=== PATIENT | female | born 1945 | race Caucasian/White ===

== ENCOUNTER 2016-07-30 18:35 | Emergency (ER) | payer MEDICARE ==
[2016-07-30 19:18] LABS: BILIRUBIN,URINE NEGATIVE (NEGATIVE); PH,URINE 5.5 PH (5.0-7.5)
[2016-07-30 19:22] LABS: UA w/ MICROSCOPIC CHARGE YES; UR CULTURE IF IND INDICATED
--- NOTE | 2016-07-30 19:22 | ED Physician Documentation ---
History of Present Illness - Stated complaint Stated Complaint: FEMALE - Chief complaint Chief Complaint: Abd Pain - History obtained from History obtained from: Patient, Family - History of Present Illness Timing: How many days ago (3) Pain level max: 3 Pain level now: 0 Improved by: nothing Worsened by: nothing - Additonal information Additional information: states R LQ pain intermittently for 3 days. states noted blood in urine today. Has had renal stones in the past. Visiting from [place] Review of Systems Ten Systems: 10 systems reviewed and negative Constitutional: denies: Fever, Chills Nose: denies: Rhinorrhea / runny nose, Congestion GI: denies: Nausea, Vomiting, Diarrhea Skin: denies: Rash Musculoskeletal: denies: Neck pain, Back pain Neurologic: denies: Focal weakness, Numbness, Headache PD PAST MEDICAL HISTORY - Past Medical History Past Medical History: Yes Cardiovascular: Hypertension, Coronary artery disease Endocrine/Autoimmune: Type 2 diabetes GI: Cholelithiasis : Kidney stones - Past Surgical History Past Surgical History: Yes - Present Medications Home Medications: Ambulatory Orders Medication Instructions Recorded Confirmed Cephalexin [Keflex] 500 mg PO Q6H #28 capsule 07/30/16 Ondansetron Odt [Zofran] 4 mg TL Q6H PRN #10 tablet 07/30/16 Oxycodone HCl/Acetaminophen 1 each PO Q6H PRN #7 tablet 07/30/16 [Percocet 5-325 mg Tablet] - Allergies Allergies/Adverse Reactions: Allergies Allergy/AdvReac Type Severity Reaction Status Date / Time codeine Allergy Unknown Verified 07/30/16 18:45 - Social History Does the pt smoke?: No Smoking Status: Never smoker Does the pt drink ETOH?: No Does the pt have substance abuse?: No - Immunizations Immunizations are current?: Yes PD ED PE NORMAL - Vitals Vital signs reviewed: Yes - General General: Alert and oriented X 3, No acute distress, Well developed/nourished - HEENT HEENT: Moist mucous membranes - Neck Neck: Supple, no meningeal sign - Cardiac Cardiac: RRR - Respiratory Respiratory: No respiratory distress, Clear bilaterally - Abdomen Abdomen: Soft, Non tender, Non distended - Back Back: No CVA TTP, No spinal TTP - Derm Derm: Warm and dry - Neuro Neuro: Alert and oriented X 3 - Psych Psych: Normal mood, Normal affect Results - Vitals Vitals: Vital Signs - 24 hr 07/30/16 07/30/16 07/30/16 18:35 19:53 21:27 Temperature 36.7 C 36.6 C 36.2 C L Heart Rate 54 L 53 L 58 L Respiratory 14 15 15 Rate Blood Pressure 153/69 H 150/55 H 144/64 H O2 Saturation 100 98 97 Oxygen O2 Source Room air - Labs Labs: Laboratory Tests 07/30/16 07/30/16 07/30/16 18:54 19:41 19:41 WBC 11.0 H RBC 4.45 Hgb 13.5 Hct 40.6 MCV 91.1 MCH 30.4 MCHC 33.3 RDW 13.5 Plt Count 237 MPV 8.9 Neut # 5.8 Lymph # 4.2 H [place] # 0.9 Eos # 0.1 Baso # 0.1 Absolute Nucleated RBC 0.00 Nucleated RBCs 0.0 Sodium 140 Potassium 3.9 Chloride 104 Carbon Dioxide 27 Anion Gap 9.0 BUN 20 Creatinine 1.0 Estimated GFR (MDRD) 55 L Glucose 122 H Calcium 9.2 Total Bilirubin 0.7 AST 25 ALT 22 Alkaline Phosphatase 58 Total Protein 7.1 Albumin 4.0 Globulin 3.1 Albumin/Globulin Ratio 1.3 Lipase 35 Urine Color RED/BLOODY Urine Clarity CLOUDY Urine pH 5.5 Ur Specific [place] >=1.030 H Urine Protein 100 H Urine Glucose (UA) NEGATIVE Urine Ketones NEGATIVE Urine Occult Blood LARGE H Urine Nitrite NEGATIVE Urine Bilirubin NEGATIVE Urine Urobilinogen 0.2 (NORMAL) Ur Leukocyte Esterase NEGATIVE Urine RBC TNTC H Urine WBC 4-5 Ur Squamous Epith Cells FEW Squamous Urine Bacteria Many H Urine Mucus Few Strands Ur Microscopic Review INDICATED Urine Culture Comments INDICATED - Rads (name of study) CT abd/pelvis Radiology: Prelim report reviewed, EMP read contemporaneously, See rad report ( Mild to moderate right hydroureteronephrosis extending to a 6 x 4 x 5 mm distal ureteral calculus. Tiny nonobstructive bilateral intrarenal calculi. ) PD MEDICAL DECISION MAKING - ED course Complexity details: reviewed results, re-evaluated patient, considered differential, d/w patient, d/w family ED course: Patient is a 70-year-old female with hematuria. Her pain is mainly low in the pelvis. Sister had ovarian cancer in the past, therefore a CT was performed to evaluate for possible ovarian mass. Ovaries do not appear to have any mass on CT scan. She does have a right ureteral stone. Does not currently have any pain. She is very well-appearing, nontoxic. Urinalysis appears contaminated, however will error on the side of caution and place her on antibiotics. She is referred to [facility] in [place] for urology follow-up. This is where her daughter has her high risk care. The patient will be in the state for several more weeks. If she worsens in any way she will return. Patient is comfortable with this plan. I did attempt to contact urology several times, but no callback was received. Patient and family were given strict return precautions. Patient counseled regarding signs and symptoms for which I believe and urgent re-evaluation would be necessary. Patient with good understanding of and agreement to plan and is comfortable going home at this time This document was made in part using voice recognition software. While efforts are made to proofread this document, sound alike and grammatical errors may occur. Departure - Departure Disposition: 01 Home, Self Care Clinical Impression: Ureteral stone Condition: Good Instructions: ED Stone Renal W Colic Follow-Up: [facility] [Provider Group] - Within 1 week (call for an appointment) [facility] [Provider Group] Prescriptions: Cephalexin [Keflex] 500 mg PO Q6H #28 capsule Oxycodone HCl/Acetaminophen [Percocet 5-325 mg Tablet] 1 each PO Q6H PRN #7 tablet PRN Reason: pain Ondansetron Odt [Zofran] 4 mg TL Q6H PRN #10 tablet PRN Reason: Nausea / Vomiting Comments: You need to follow up with urology. Call for an appointment. Return if you worsen, especially if you develop fevers. Do not drink alcohol or drive while on narcotic pain medicine. Note that many narcotic pain relievers also contain tylenol/acetaminophen. Please ensure that your total dose of acetaminophen from all sources does not exceed 3 grams (3000mg) per day. You may constipated on this medication, take a stool softener such as "Colace" twice a day while you are on it. Also recommend a [id number] laxative such as senna or MiraLAX any day that you do not have a bowel movement. If you received narcotic pain medication in the emergency department, do not drive or operate machinery for the next 24 hours. Discharge Date/Time: 07/30/16 22:19
[2016-07-30 19:52] LABS: BASOPHILS # (AUTO) 0.1 10^3/uL (0.0-0.1); BASOPHILS % (AUTO) 0.5 %; EOSINOPHILS # (AUTO) 0.1 10^3/uL (0.0-0.7); EOSINOPHILS % (AUTO) 0.8 %; HCT - HEMATOCRIT 40.6 % (37.0-47.0); HGB - HEMOGLOBIN 13.5 g/dL (12.0-16.0); LYMPHOCYTES # (AUTO) 4.2 10^3/uL (1.5-3.5); LYMPHOCYTES % (AUTO) 37.8 %; MEAN CORPUSCULAR HEMOGLOBIN 30.4 pg (27.0-31.0); MEAN CORPUSCULAR HGB CONC 33.3 g/dL (32.0-36.0); MEAN CORPUSCULAR VOLUME 91.1 fL (81.0-99.0); MEAN PLATELET VOLUME 8.9 fL (7.9-10.8); MONOCYTES # (AUTO) 0.9 10^3/uL (0.0-1.0); MONOCYTES % (AUTO) 8.3 %; NEUTROPHILS # (AUTO) 5.8 10^3/uL (1.5-6.6); NEUTROPHILS % (AUTO) 52.6 %; RED BLOOD COUNT 4.45 10^6/uL (4.20-5.40); RED CELL DISTRIBUTION WIDTH 13.5 % (12.0-15.0)
[2016-07-30 20:02] LABS: ALBUMIN/GLOBULIN RATIO 1.3 (1.0-2.2); BILIRUBIN,TOTAL 0.7 mg/dL (0.2-1.0); CALCIUM 9.2 mg/dL (8.5-10.3); POTASSIUM 3.9 mmol/L (3.5-5.0); TOTAL PROTEIN 7.1 g/dL (6.7-8.2)
[2016-07-30] MEDS ORDERED: IOPAMIDOL-300 100 ML VIAL IVP ONE (20:24)
--- NOTE | 2016-07-30 21:09 | CT Preliminary Report ---
Exam: CT Abdomen/Pelvis W/ IMPRESSION: 1. Mild to moderate right hydroureteronephrosis extending to a 6 x 4 x 5 mm distal ureteral calculus. 2. Tiny nonobstructive bilateral intrarenal calculi. [facility] SITE ID: [id number]
--- NOTE | 2016-07-30 21:11 | CT Report ---
EXAM: CT ABDOMEN AND PELVIS EXAM DATE: 07/30/2016 08:32 PM. CLINICAL HISTORY: Right pelvic pain. Hematuria. COMPARISONS: None. TECHNIQUE: Routine helical CT imaging was performed through the abdomen and pelvis. IV contrast: 100 mL Isovue-300. Enteric contrast: No. Reconstructions: Coronal and sagittal. In accordance with CT protocol optimization, one or more of the following dose reduction techniques w ere utilized for this exam: automated exposure control, adjustment of mA and/or KV based on patient s ize, or use of iterative reconstructive technique. FINDINGS: Lung Bases: Unremarkable. Liver: Several subcentimeter hypoattenuating foci are too small to characterize further (axial images 18, 20, 23). Gallbladder/Bile Ducts: Unremarkable. No visualized stones or biliary ductal dilatation. Spleen: Normal. Pancreas: Normal. Adrenal Glands: Normal. Kidneys and Ureters: Bilateral parapelvic cysts. 10 mm exophytic cyst arising from the right lower po le. Two Subcentimeter round hypoattenuating foci in the left lower pole cortex likely also represent cysts. 2-3 mm intrarenal calculi in the left interpolar region and right lower pole. Mild to moderate right hydroureteronephrosis extending to a 6 x 4 x 5 mm calculus in the distal ureter (axial image 7 6, coronal image 34). Peritoneal Cavity/Bowel: Postoperative changes of small bowel resection with enteroenteric anastomosi s in the anterior left mid abdomen. No evidence for bowel obstruction or acute inflammatory process. The appendix is normal. No free fluid, pneumoperitoneum, or adenopathy. Pelvic Organs: The bladder, uterus, and ovaries are within normal limits. Vasculature: Trace atherosclerotic calcifications within the aorta. No aneurysm or other significant abnormality. Bones: Mild degenerative changes within the spine. No acute bony abnormality. Other: None. IMPRESSION: 1. Mild to moderate right hydroureteronephrosis extending to a 6 x 4 x 5 mm distal ureteral calculus. 2. Tiny nonobstructive bilateral intrarenal calculi. [facility] Referring Provider Line: [phone] SITE ID: [id number]
[2016-07-30 21:27] VITALS: BP 144/64
[2016-07-30] MEDS ORDERED: cefTRIAXone 1 GM VIAL IM STA (22:09)
[2016-07-30] MEDS ORDERED: cefTRIAXone 1 GM in SODIUM CHLORIDE 0.9% MINIBAG 100 ML IV STA (22:11)
[2016-07-30] MEDS ORDERED: cefTRIAXone 1 GM VIAL ONE (22:11)
== END 2016-07-30 22:19 | disposition home or self-care (01) ==
LOC: ED 18:35
DX: N13.2 Hydronephrosis with renal and ureteral calculous obstruction (principal); Z87.442 Personal history of urinary calculi; I10 Essential (primary) hypertension; I25.10 Atherosclerotic heart disease of native coronary artery without angina pectoris; E11.9 Type 2 diabetes mellitus without complications
CPT/HCPCS: 36415; 74177; 80053; 81001; 83690; 85025; 87086; 96374; 99283; 99284; Q9967; 81003

== ENCOUNTER 2016-07-31 15:09 | Emergency (ER) | payer MEDICARE ==
[2016-07-31] MEDS ORDERED: SODIUM CHLORIDE 0.9% 1,000 ML IV ONE ×2 (15:18→15:22)
[2016-07-31] MEDS ORDERED: KETOROLAC 60 MG/2 ML VIAL IVP STA (15:18)
[2016-07-31] MEDS ORDERED: ONDANSETRON 4 MG/2 ML VIAL IVP STA (15:18)
[2016-07-31] MEDS ORDERED: KETOROLAC 60 MG/2 ML VIAL ONE (15:22)
[2016-07-31] MEDS ORDERED: ONDANSETRON 4 MG/2 ML VIAL ONE ×2 (15:22→15:25)
[2016-07-31] MEDS ORDERED: KETOROLAC 30 MG/ML VIAL ONE (15:24)
[2016-07-31 15:36] LABS: BASOPHILS # (AUTO) 0.1 10^3/uL (0.0-0.1); BASOPHILS % (AUTO) 0.6 %; EOSINOPHILS % (AUTO) 0.1 %; HCT - HEMATOCRIT 44.9 % (37.0-47.0); LYMPHOCYTES # (AUTO) 2.4 10^3/uL (1.5-3.5); MEAN CORPUSCULAR HEMOGLOBIN 30.4 pg (27.0-31.0); MEAN CORPUSCULAR HGB CONC 33.4 g/dL (32.0-36.0); MEAN CORPUSCULAR VOLUME 91.1 fL (81.0-99.0); MEAN PLATELET VOLUME 9.1 fL (7.9-10.8); MONOCYTES # (AUTO) 0.6 10^3/uL (0.0-1.0); MONOCYTES % (AUTO) 4.5 %; NEUTROPHILS # (AUTO) 10.4 10^3/uL (1.5-6.6); NEUTROPHILS % (AUTO) 76.8 %; RED BLOOD COUNT 4.93 10^6/uL (4.20-5.40); RED CELL DISTRIBUTION WIDTH 13.5 % (12.0-15.0); UNCORRECTED WHITE BLOOD COUNT 13.5 x10^3/uL; WHITE BLOOD COUNT 13.5 x10^3/uL (4.8-10.8)
[2016-07-31 15:48] LABS: ALBUMIN/GLOBULIN RATIO 1.2 (1.0-2.2); BILIRUBIN,TOTAL 0.4 mg/dL (0.2-1.0); CALCIUM 9.2 mg/dL (8.5-10.3); CREATININE 0.9 mg/dL (0.4-1.0); POTASSIUM 3.7 mmol/L (3.5-5.0); TOTAL PROTEIN 7.8 g/dL (6.7-8.2)
[2016-07-31 16:19] LABS: BILIRUBIN,URINE NEGATIVE (NEGATIVE)
[2016-07-31 16:34] LABS: UA w/ MICROSCOPIC CHARGE YES
[2016-07-31 16:43] LABS: WBC,URINE 0-3 /HPF (0-5)
[2016-07-31 16:44] LABS: UR CULTURE IF IND NOT INDICATED
--- NOTE | 2016-07-31 16:51 | ED Physician Documentation ---
PD HPI ABD PAIN - Stated complaint Stated Complaint: ABD PX - Chief complaint Chief Complaint: Abd Pain - History obtained from History obtained from: Patient, Family - History of Present Illness Timing - onset: Today Timing - duration: Hours (5) Timing - details: Abrupt onset Pain level max: 10 Pain level now: 10 Quality: Aching, Sharp, Pain Location: Other (R pelvic) Radiation: Right flank Improved by: Other (nothing) Worsened by: Other (nothing) Similar symptoms before: Diagnosis (kidney stone) Recently seen: Emergency Dept (last night for same,dx with kidney stone) Review of Systems Constitutional: denies: Fever, Chills Nose: denies: Rhinorrhea / runny nose, Congestion Cardiac: denies: Chest pain / pressure Respiratory: denies: Dyspnea GI: reports: Nausea, Vomiting. denies: Diarrhea Skin: denies: Rash Musculoskeletal: denies: Neck pain, Back pain Neurologic: denies: Headache PD PAST MEDICAL HISTORY - Past Medical History Cardiovascular: Hypertension, Coronary artery disease Endocrine/Autoimmune: Type 2 diabetes GI: Cholelithiasis : Kidney stones - Past Surgical History Past Surgical History: Yes - Present Medications Home Medications: Ambulatory Orders Medication Instructions Recorded Confirmed Cephalexin [Keflex] 500 mg PO Q6H #28 capsule 07/30/16 07/31/16 Ondansetron Odt [Zofran] 4 mg TL Q6H PRN #10 tablet 07/30/16 07/31/16 Oxycodone HCl/Acetaminophen 1 each PO Q6H PRN #7 tablet 07/30/16 07/31/16 [Percocet 5-325 mg Tablet] Metoprolol Succinate 25 mg ORAL BID 07/31/16 07/31/16 Topiramate 25 mg PO DAILY 07/31/16 07/31/16 - Allergies Allergies/Adverse Reactions: Allergies Allergy/AdvReac Type Severity Reaction Status Date / Time codeine Allergy Unknown Verified 07/31/16 15:17 - Social History Does the pt smoke?: No Smoking Status: Never smoker Does the pt drink ETOH?: No Does the pt have substance abuse?: No - Immunizations Immunizations are current?: Yes PD ED PE NORMAL - Vitals Vital signs reviewed: Yes - General General: Alert and oriented X 3, Other (Appears uncomfortable, vomiting) - HEENT HEENT: PERRL, Moist mucous membranes - Neck Neck: Supple, no meningeal sign - Cardiac Cardiac: RRR - Respiratory Respiratory: No respiratory distress, Clear bilaterally - Abdomen Abdomen: Soft, Non tender, Non distended - Back Back: No CVA TTP, No spinal TTP - Derm Derm: Warm and dry, No rash - Neuro Neuro: Alert and oriented X 3 - Psych Psych: Normal mood, Normal affect Results - Vitals Vitals: Vital Signs - 24 hr 07/31/16 07/31/16 15:15 16:53 Temperature 35.9 C L 36.9 C Heart Rate 51 L 72 Respiratory 20 14 Rate Blood Pressure 180/77 H 156/61 H O2 Saturation 99 96 Oxygen O2 Source Room air - Labs Labs: Laboratory Tests 07/31/16 07/31/16 07/31/16 15:25 15:25 16:05 WBC 13.5 H RBC 4.93 Hgb 15.0 Hct 44.9 MCV 91.1 MCH 30.4 MCHC 33.4 RDW 13.5 Plt Count 262 MPV 9.1 Neut # 10.4 H Lymph # 2.4 Lane # 0.6 Eos # 0.0 Baso # 0.1 Absolute Nucleated RBC 0.00 Nucleated RBCs 0.0 Sodium 139 Potassium 3.7 Chloride 104 Carbon Dioxide 25 Anion Gap 10.0 BUN 15 Creatinine 0.9 Estimated GFR (MDRD) 62 L Glucose 155 H Calcium 9.2 Total Bilirubin 0.4 AST 26 ALT 23 Alkaline Phosphatase 66 Total Protein 7.8 Albumin 4.2 Globulin 3.6 Albumin/Globulin Ratio 1.2 Lipase 25 Urine Color YELLOW Urine Clarity HAZY Urine pH 7.0 Ur Specific [place] 1.020 Urine Protein NEGATIVE Urine Glucose (UA) NEGATIVE Urine Ketones 15 H Urine Occult Blood LARGE H Urine Nitrite NEGATIVE Urine Bilirubin NEGATIVE Urine Urobilinogen 0.2 (NORMAL) Ur Leukocyte Esterase NEGATIVE Urine RBC TNTC H Urine WBC 0-3 Ur Squamous Epith Cells NONE SEEN Amorphous Sediment Few Urine Bacteria None Seen Ur Microscopic Review INDICATED Urine Culture Comments NOT INDICATED PD MEDICAL DECISION MAKING - ED course Complexity details: reviewed results, re-evaluated patient, considered differential, d/w patient, d/w family ED course: Patient is a 70-year-old female with a known right ureteral stone at the UVJ. Did not have symptoms last night, but developed pain and vomiting today. This resolved with Zofran and Toradol. Given IV fluids. No evidence of UTI or infected stone. Pain well controlled. Has pain medication and nausea medication at home. We will have her follow-up with urology for further evaluation and care. Patient and family counseled regarding signs and symptoms for which I believe and urgent re-evaluation would be necessary. Patient with good understanding of and agreement to plan and is comfortable going home at this time This document was made in part using voice recognition software. While efforts are made to proofread this document, sound alike and grammatical errors may occur. Departure - Departure Disposition: 01 Home, Self Care Clinical Impression: Ureteral stone Condition: Good Instructions: ED Stone Renal W Colic Follow-Up: [facility] [Provider Group] - Within 1 week Comments: Continue your medications at home. Return if you worsen. Drink plenty of water. Discharge Date/Time: 07/31/16 16:57
[2016-07-31 16:54] VITALS: BP 156/61
== END 2016-07-31 16:57 | disposition home or self-care (01) ==
LOC: ED 15:09
DX: N20.1 Calculus of ureter (principal); R11.2 Nausea with vomiting, unspecified; I10 Essential (primary) hypertension; E11.9 Type 2 diabetes mellitus without complications
CPT/HCPCS: 36415; 80053; 81001; 81003; 83690; 85025; 87086; 96374; 96375; 99283; 99284

== ENCOUNTER 2016-08-18 11:58 | Emergency (ER) | payer MEDICARE ==
[2016-08-18 12:06] VITALS: BP 164/88
[2016-08-18 12:15] LABS: BILIRUBIN,URINE NEGATIVE (NEGATIVE)
[2016-08-18 12:16] LABS: UA w/ MICROSCOPIC CHARGE YES
--- NOTE | 2016-08-18 12:26 | ED Physician Documentation ---
History of Present Illness - Stated complaint Stated Complaint: FEMALE - Chief complaint Chief Complaint: Abd Pain - History obtained from History obtained from: Patient - Additonal information Additional information: Patient is a pleasant 70-year-old female who presents with a chief complaint of hematuria. The onset hematuria was this morning she has no associated symptoms. There is no abdominal pain, nausea, vomiting, constipation, diarrhea , lower urinary symptoms or fever. She was diagnosed with a kidney stone last month it was a 4 x 5 x 6 mm stone at the right UVJ with moderate hydronephrosis on CT scan. The patient passed a stone about a week ago. She caught the stone in the strainer. She has had multiple stones before and she is quite sure she passed it. She has had no recurrent symptoms from that point to the present she just finished a course of unknown antibiotics a couple days ago. Review of systems: For pertinent positive and negative questions for the review of systems please see history of present illness. Otherwise all other systems have been reviewed and are negative. Dragon disclaimer: Parts of this medical record were created using voice recognition technology. Because of the inherent limitations of this system occasional same sounding word substitutions do occur and persist despite proofreading. Please read the document for context. Review of Systems Ten Systems: 10 systems reviewed and negative Constitutional: denies: Fever, Chills GI: denies: Abdominal Pain, Abdominal Swelling, Nausea, Vomiting, Constipation, Diarrhea, Hematemesis : reports: Hematuria. denies: Dysuria, Frequency, Hesitancy, Unable to Void, Incontinent PD PAST MEDICAL HISTORY - Past Medical History Past Medical History: Yes Cardiovascular: Hypertension, Coronary artery disease Endocrine/Autoimmune: Type 2 diabetes GI: Cholelithiasis : Kidney stones - Past Surgical History Past Surgical History: Yes - Present Medications Home Medications: Ambulatory Orders Medication Instructions Recorded Confirmed Metoprolol Succinate 25 mg ORAL BID 07/31/16 08/18/16 Topiramate 25 mg PO DAILY 07/31/16 08/18/16 Aspirin 81 mg DAILY 08/18/16 08/18/16 Ciprofloxacin HCl [Cipro] 500 mg PO BID #6 tablet 08/18/16 Ondansetron Odt [Zofran] 4 mg TL Q6H PRN #10 tablet 08/18/16 Tramadol HCl 50 mg PO Q8HR PRN #14 tablet 08/18/16 - Allergies Allergies/Adverse Reactions: Allergies Allergy/AdvReac Type Severity Reaction Status Date / Time codeine Allergy Unknown Verified 07/31/16 15:17 - Social History Does the pt smoke?: No Smoking Status: Never smoker Does the pt drink ETOH?: No Does the pt have substance abuse?: No - Immunizations Immunizations are current?: Yes PD ED PE NORMAL - General General: Alert and oriented X 3, No acute distress, Well developed/nourished - Cardiac Cardiac: RRR, No gallop - Respiratory Respiratory: No respiratory distress - Abdomen Abdomen: Normal bowel sounds, Soft, Non tender, Non distended, No organomegaly - Derm Derm: Normal color, Warm and dry - Psych Psych: Normal mood, Normal affect Results - Vitals Vitals: Vital Signs - 24 hr 08/18/16 12:00 Temperature 37 C Heart Rate 96 Respiratory 18 Rate Blood Pressure 164/88 H O2 Saturation 96 Oxygen O2 Source Room air - Labs Labs: Laboratory Tests 08/18/16 12:05 Urine Color DARK YELLOW Urine Clarity CLOUDY Urine pH 6.0 Ur Specific [place] 1.020 Urine Protein 30 H Urine Glucose (UA) NEGATIVE Urine Ketones NEGATIVE Urine Occult Blood LARGE H Urine Nitrite NEGATIVE Urine Bilirubin NEGATIVE Urine Urobilinogen 0.2 (NORMAL) Ur Leukocyte Esterase SMALL H Urine RBC TNTC H Urine WBC >25 H Ur Squamous Epith Cells RARE Squamous Urine Bacteria Moderate H Ur Microscopic Review INDICATED Urine Culture Comments INDICATED PD MEDICAL DECISION MAKING - ED course Complexity details: reviewed old records, reviewed results, re-evaluated patient , d/w patient ED course: Patient is a pleasant 70-year-old female presents just with a complaint hematuria. She has no other complaints whatsoever is listed in my HPI. Urine testing demonstrates hematuria and a small amount of pyuria. I did do a quick check of her right kidney with ultrasound I do not appreciate any hydronephrosis. A KUB of the abdomen was done to see if she still had an obstructing stone in the right UVJ. Since it was a larger stone I thought I might be able to see on plain film although clinically the patient is quite sure that she passed a stone and has no symptoms. I do not see any obvious radiopaque object however I am still waiting for the formal radiology read. I treatment plan for this patient is to have her increase fluids, take a short course of antibiotics and continue to monitor her symptoms including for symptoms of recurrent or persistent kidney stone pain. Disposition: To home Clinical impression: 1. Hematuria 2. Possible mild urinary tract infection 3. Recent history of right UVJ stone-patient believes she passed And retrieve the stone. No hydronephrosis on my quick look portable ultrasound and no obvious stone on KUB per my read Departure - Departure Disposition: Home, Self Care Clinical Impression: Hematuria Condition: Good Instructions: ED Hematuria, Hematuria Poss Causes Follow-Up: your,physician [Other] Prescriptions: Tramadol HCl 50 mg PO Q8HR PRN #14 tablet PRN Reason: Pain Ciprofloxacin HCl [Cipro] 500 mg PO BID #6 tablet Ondansetron Odt [Zofran] 4 mg TL Q6H PRN #10 tablet PRN Reason: Nausea / Vomiting Comments: Please increase your hydration significantly
[2016-08-18 12:33] LABS: UR CULTURE IF IND INDICATED; WBC,URINE >25 /HPF (0-5)
[2016-08-18] MEDS ORDERED: CIPROFLOXACIN 250 MG TABLET PO STA (12:39)
[2016-08-18] MEDS ORDERED: CIPROFLOXACIN 250 MG TABLET PO ONE (12:40)
--- NOTE | 2016-08-18 13:02 | XRAY Preliminary Report ---
Exam: XR Abdomen 1 View IMPRESSION: 1. The distal right ureteral stone seen on the previous study is not definitely seen on the current e xam. 2. Stable tiny stone at the lower pole of the right kidney. [facility] SITE ID: [id number]
--- NOTE | 2016-08-18 13:04 | XRAY Report ---
EXAM: ABDOMEN RADIOGRAPHY EXAM DATE: 08/18/2016 12:37 PM. CLINICAL HISTORY: Previous right ureterovesical junction calculus. Hematuria. Follow-up. COMPARISON: CT abdomen and pelvis from 07/30/2016. TECHNIQUE: 1 view. FINDINGS: Bowel Gas Pattern: Within normal limits. No dilated loops. Other: The distal right ureteral stone seen on the previous CT exam is not definitively seen on the r adiographic exam. There is a tiny stone at the lower pole the right kidney which is unchanged. There are surgical clips at the left side of the abdomen. IMPRESSION: 1. The distal right ureteral stone seen on the previous study is not definitely seen on the current e xam. 2. Stable tiny stone at the lower pole of the right kidney. [facility] Referring Provider Line: [phone] SITE ID: [id number]
== END 2016-08-18 13:06 | disposition home or self-care (01) ==
LOC: ED 11:58
DX: R31.9 Hematuria, unspecified (principal); Z87.442 Personal history of urinary calculi; I10 Essential (primary) hypertension; I25.10 Atherosclerotic heart disease of native coronary artery without angina pectoris; E11.9 Type 2 diabetes mellitus without complications; Z79.82 Long term (current) use of aspirin
CPT/HCPCS: 74000; 81001; 87077; 87086; 87181; 99283; 99284; A9270; 81003